=== PATIENT | female | born 1950 | race Caucasian/White ===

== ENCOUNTER → 2018-09-26 | Outpatient (CLI) | payer OTHER | LOC: M.CT 15:06 | DX: K80.20 Calculus of gallbladder without cholecystitis without obstruction (principal); R10.31 Right lower quadrant pain; M54.9 Dorsalgia, unspecified ==

== ENCOUNTER → 2018-11-28 | Outpatient (CLI) | payer OTHER | LOC: M.LAB 04:58 | DX: E87.6 Hypokalemia (principal) ==